=== PATIENT | female | born 1960 | race Caucasian/White ===

== ENCOUNTER 2020-07-08 13:09 | Emergency (ER) | payer OTHER ==
[~2020-07-08] VITALS: Ht 157.5 cm; Wt 56.7 kg
[2020-07-08 13:30] LABS: URINE BILIRUBIN NEGATIVE (Negative); URINE BLOOD TRACE (Negative); URINE CLARITY CLEAR; URINE COLOR YELLOW; URINE GLUCOSE-RANDOM* NEGATIVE (Negative); URINE KETONES NEGATIVE (Negative); URINE NITRITE-REFLEX NEGATIVE (Negative); URINE PROTEIN (DIPSTICK) NEGATIVE (Negative); URINE SPECIFIC GRAVITY <= 1.005 (1.005-1.035); URINE UROBILINOGEN 0.2 E.U./dl (0.2-1.0)
[2020-07-08 13:32] LABS: URINE LEUKOCYTES-REFLEX 1+ (Negative)
[2020-07-08 13:42] LABS: BACTERIA-REFLEX 1-9 Few /HPF (None Seen); CASTS None Seen /LPF (None Seen); CRYSTALS None Seen /LPF (None Seen); SQUAMOUS >10 Many /LPF (0-3); URINE RBC None Seen /HPF (0-2); URINE WBC-REFLEX 6-15 Few /HPF (0-5)
[2020-07-08 14:07] LABS: ABSOLUTE NEUTROPHILS 2.1 thou/uL (1.4-8.2); BASOPHILS 0.7 % (0.0-2.0); EOSINOPHILS 1.7 % (0.0-3.0); HEMATOCRIT 36.4 % (37.0-47.0); LYMPHOCYTES 26.6 % (24.0-44.0); MCH 37.6 pg (26.0-34.0); MCHC 35.7 g/dL (28.0-37.0); MCV 105.3 fL (80.0-100.0); MONOCYTES 8.3 % (1.0-8.0); PLATELET COUNT 138 thou/uL (150-400); POLYS 62.7 % (36.0-66.0); RBC 3.46 mil/uL (4.20-5.00); RDW 14.3 % (10.5-14.5); WBC 3.4 thou/uL (4.0-11.0)
[2020-07-08 14:16] LABS: ALBUMIN 4.7 g/dL (3.4-5.0); CREATININE 0.4 mg/dL (0.6-1.0); TOTAL BILIRUBIN 1.6 mg/dL (0.2-1.0); TOTAL PROTEIN 7.3 g/dL (6.4-8.2)
[2020-07-08 14:18] LABS: POTASSIUM 2.6 mmol/L (3.5-5.1)
[2020-07-08] MEDS ORDERED: CIPRO500 M1 PO (17:10)
[2020-07-08] MEDS ORDERED: FLAGYL500 M1 PO (17:10)
[2020-07-08] MEDS ORDERED: POTASSIUM20 PO (17:11)
[2020-07-08] MEDS ORDERED: NORCO 5-325 TA1 EAC2 PO (17:12)
[2020-07-08] MEDS ORDERED: DIFLUCAN150 MG PO (17:44)
[2020-07-08 17:54] VITALS: BP 148/87
--- NOTE | 2020-07-09 07:41 | EKG ---
[facility] [place] [address] ELECTROCARDIOGRAM REPORT Name: DONATO ADAMS Room #: DEP [facility]#: [id number] Admission: 07/08/20 Attend Phys: Discharge: 07/08/20 Date of : 58 Report #: [id number] THIS REPORT FOR: cc: OSACR Javed family physician/PCP OSCAR Javed family physician/PCP Ulises Lopez MD [facility] ~ THIS REPORT FOR: //name// [facility] ED Test Date: 2020-07-08 Test Time: 14:26:40 Pat Name: DONATO ADAMS Department: Room: Gender: F Director [employer]: : 1960 Requested By: Wisam James Order Number: [id number] MD: Ulises Lopez Measurements Intervals [place] Rate: 79 P: 47 AL: 147 QRS: 20 QRSD: 93 T: 73 QT: 471 QTc: 541 Interpretive Statements Sinus rhythm Left atrial enlargement LVH with secondary repolarization abnormality Prolonged QT interval No previous ECG available for comparison Electronically Signed On 07-09-2020 7:41:11 CDT by Ulises Lopez [email or web address] <ELECTRONICALLY SIGNED> By: Ulises Lopez MD, FACC 07/09/20 0741 1426 1426 Ulises Lopez MD, [facility] /EPI
== END 2020-07-08 17:54 | disposition home or self-care (01) ==
LOC: ER 13:09
PROVIDERS: Emergency Medicine
DX: K52.9 Noninfective gastroenteritis and colitis, unspecified (principal); E87.6 Hypokalemia; E83.42 Hypomagnesemia; F17.210 Nicotine dependence, cigarettes, uncomplicated; Z88.0 Allergy status to penicillin; Z88.2 Allergy status to sulfonamides